=== PATIENT | female | born 1955 ===

== ENCOUNTER 2019-04-11 11:15 | Day surgery (SDC) | payer OTHER | END 2019-04-11 17:39 | disposition home or self-care (01) | LOC: AMB-ENDOS 11:15 | DX: D12.0 Benign neoplasm of cecum (principal); D12.3 Benign neoplasm of transverse colon; K62.1 Rectal polyp; K64.8 Other hemorrhoids; Z12.11 Encounter for screening for malignant neoplasm of colon ==

== ENCOUNTER 2020-06-25 06:27 | Day surgery (SDC) | payer OTHER | END 2020-06-25 10:10 | disposition home or self-care (01) | LOC: AMB-ENDOS 06:27 | PROVIDERS: ATTEND Colon & Rectal Surgery | DX: K63.5 Polyp of colon (principal); Z12.11 Encounter for screening for malignant neoplasm of colon; K64.8 Other hemorrhoids; Z20.828 Contact with and (suspected) exposure to other viral communicable diseases ==